=== PATIENT | male | born 1945 | race Caucasian/White ===

== ENCOUNTER 2016-06-14 07:06 | Observation (INO) | payer MEDICARE, OTHER ==
[~2016-06-14] VITALS: Ht 182.9 cm; Wt 101.7 kg
--- NOTE | ~2016-06-14 | ER ---
PATIENT'S NAME: ISRAEL DU [facility] AGE: 71 Y [address] ROOM: [facility] [place], [place] [address] LOCATION: GPCU ADMIT DATE: 06/14/2016 ER/Outpatient Report DISCHARGE DATE: FAMILY PHYSICIAN: ALMAS TOLENTINO MD ATTENDING PHYSICIAN: ALMAS TOELNTINO CHIEF COMPLAINT: Dizziness and low blood pressure. HISTORY OF PRESENT ILLNESS: The patient was at [facility] earlier this morning when they noticed that his blood pressure is low and reported to be 58 systolic over something in the 30s. The patient did feel little bit dizzy at that time. He otherwise states he has no problems or issues. He was admitted to [facility] on the 03 of June for colostomy and urostomy creation. He had some issues with blood pressure after that and his blood pressure is running in the 90s to 100s normally after that. He was discharged on yesterday. He has no other significant complaints. He did take his usual blood pressure medications. He is supposed to be on an antibiotic as well. He denies any chest pain, headache, fevers, chills, abdominal pain, shortness of breath, vision changes, or any other concerning signs or symptoms. PAST MEDICAL HISTORY: Documented on the record and reviewed by me. SOCIAL HISTORY: Documented on the record and reviewed by me. MEDICATIONS: Documented on the record and reviewed by me. ALLERGIES: DOCUMENTED ON THE RECORD AND REVIEWED BY ME. REVIEW OF SYSTEMS: All systems were reviewed and negative except as noted in the HPI. PHYSICAL EXAMINATION: VITAL SIGNS: Vital signs on arrival are blood pressure 95/52, pulse 62, respiratory rate is 18, temperature 95.9, and SpO2 is 95% on room air. GENERAL: Age-appropriate male, in no obvious pain or distress, lying comfortably on exam table. NEURO: The patient is awake and alert. GCS is 15. Speech is clear. No facial asymmetry on exam. No cranial nerve deficits appreciated. The patient does have slight right-sided nystagmus. It was fatigable. Did not reproduce PATIENT'S NAME: ISRAEL DU [facility] AGE: 71 Y [address] ROOM: [address] [place], [place] [address] LOCATION: GPCU ADMIT DATE: 06/14/2016 ER/Outpatient Report DISCHARGE DATE: FAMILY PHYSICIAN: ALMAS TOLENTINO MD ATTENDING PHYSICIAN: ALMAS TOLENTINO any symptoms. He has no pronator drift. He has no problems with past pointing. He does have some issues with rapid alternating movements of the hands with dysdiadochokinesia. This is symmetric. The lower extremities have no focal weakness at all. He is able to do kvcw-[id number]-[id number] testing appropriately. No asymmetry noted. HEENT: Normocephalic, atraumatic. The eyes are PERRL. The oropharynx is clear, dry, pink with no exudates or erythema. NECK: Supple. Trachea is midline. CHEST: Heart is regular rate and rhythm with no appreciated murmurs. LUNGS: Clear to auscultation bilateral. No rhonchi, wheezes, or rales. ABDOMEN: Soft, nontender except for some very mild tenderness around the surgical site. There is no surrounding erythema, induration, or drainage. The colostomy has a yellow brown stool in it with some gas. The urostomy has a bloody urine-like substance. BACK: Nontender. EXTREMITIES: Warm and well perfused with diffuse edema at 2+. The extremities are slightly cool, but otherwise well-perfused. SKIN: Intact except as noted above with the surgical sites. LABS AND X-RAYS: Procalcitonin is 2.54. Sodium 136, potassium 3.8, chloride 100, CO2 is 23, BUN is 49, creatinine is 10.3, and GFR is 5. LFTs within range. CRP is 12.3. Hemoglobin is 10.4, WBC is 10.2, and platelets of 256. INR is 1.1. Lactate is 1.7. EKG initially with some artifact showing very nonspecific ST-segment changes in leads I and II. No significant dysrhythmia or ST-segment changes otherwise noted with an unlikely PVC. Repeat EKG with no ST-segment changes. No other abnormalities appreciated with normal intervals and axis other than slightly prolonged QT interval. No other comparisons immediately available. Head CT is normal per Radiology. Three-way abdomen shows diffuse bowel gas pattern with no obvious abnormalities, no free air per my read. IMPRESSION: 1. Transient hypotension. 2. Nonspecific bowel gas pattern. 3. Slight hypothermia. 4. Well-healing abdominal issues. 5. Dialysis dependent, chronic renal failure. 6. Elevated procalcitonin. 7. Elevated CRP. EMERGENCY DEPARTMENT COURSE: The patient was evaluated. Based on his med list and vital signs with a history of dialysis, his presentation is very complex. The patient was initially normotensive, however, while lying did have an episode of hypotension down to 60/36. He was given a total of 1 L of fluid approximately PATIENT'S NAME: ISRAEL DU [facility] AGE: 71 Y [address] ROOM: [place] [address] LOCATION: GPCU ADMIT DATE: 06/14/2016 ER/Outpatient Report DISCHARGE DATE: FAMILY PHYSICIAN: ALMAS TOLENTINO MD ATTENDING PHYSICIAN: ALMAS TOLENTINO over 20 minutes. His blood pressures improved markedly. When he had his very low blood pressure initially, he did develop a headache at that time. All of his symptoms resolved with improvement in his blood pressure. He did describe some dizziness associated with the low blood pressure in addition to some heaviness in the extremities. No focal deficits appreciated on exam, I do not think he is consistent with a stroke and I do not think he would be a candidate for tPA in any case given his recent significant surgery. Also, I was concerned about sepsis as he appears to be cool with some low blood pressures in addition to elevated inflammatory markers. There is no obvious source of infection at this time. I have discussed the case with Dr. Tolentino, primary care physician, and we will admit him for dialysis and observation in the setting of transient hypotension, it appears to be resolved. I believe that his presentation is mostly related to hypovolemia; however given his current presentation of recent surgery and elevated inflammatory markers, I am hesitant to make that the only diagnosis. I do not think that he has a septic abdomen, I do not see any infiltrates on his chest x-ray, and his head CT is unremarkable. I think it would be unlikely for him to have a UTI at this time. I did not start any empiric antibiotics at this time. The patient did have his labetalol this morning, which may be contributing to his lower blood pressures; however, given the report from his that his blood pressures remained low after surgery, this appears to be somewhat normal for him except for the extremely low pressures. I did review some labs that the had available from [facility] and it was noted that his CRP was down trending from 18 to approximately 13 yesterday on dismissal. Today, he is less than 13. This overall trend is encouraging and makes me think that his inflammatory markers are related to his surgery and recovery. Recommend close monitoring while in dialysis. All questions were answered. The patient was admitted without further issues. MD NICOLAS MEDRANO/oz /[id number] d: 06/14/160 t: 06/16/16 0823, OUTPATIENT REPORT
--- NOTE | ~2016-06-14 | HP ---
PATIENT'S NAME: JOSE ENRIQUE DU [facility] AGE: 71 Y [address] ROOM: [address] [address] LOCATION: GPCU ADMIT DATE: 06/14/2016 History & Physical DISCHARGE DATE: 06/15/2016 FAMILY PHYSICIAN: Almas Tolentino MD ATTENDING PHYSICIAN: Almas Tolentino DATE OF SERVICE: CHIEF COMPLAINT: Low blood pressure. HISTORY OF PRESENT ILLNESS: Jose Enrique is a 71-year-old white male, who was just at the [facility] and had surgery for a colovesical fistula. He comes in with a couple of ostomies, and had low blood pressure the day before he is going to go in for dialysis. He does suffer chronic renal failure. He has had a history of prostate cancer. Because he had low blood pressure, because he was due for dialysis today, he was admitted to the hospital for observation post dialysis. When I see him in the evening of admission, he has gone through dialysis, his pressure now is 120 systolic and he feels well. He has no sign of an abscess or fever along his belly wall. His austin are intact. His two ostomies are working well. We will watch him overnight, and if the dialysis folks and the family feel he is stable, he will go home tomorrow. PAST MEDICAL HISTORY AND MEDICATIONS: See nurse's notes, which has been reviewed. ALLERGIES: NONE. PREVIOUS OPERATIONS: Recent surgery at [facility] for colovesical fistula noted, otherwise, see nurse's database. He does have a remote history of prostate cancer as mentioned. SOCIAL HISTORY: Does not smoke. FAMILY HISTORY: Noncontributory. REVIEW OF SYSTEMS: Positive for obesity, prostate cancer, colovesical fistula. Otherwise per PATIENT'S NAME: JOSE ENRIQUE [facility] AGE: 71 Y [address] ROOM: [address] [address] LOCATION: GPCU ADMIT DATE: 06/14/2016 History & Physical DISCHARGE DATE: 06/15/2016 FAMILY PHYSICIAN: Almas Tolentino MD ATTENDING PHYSICIAN: Almas Tolentino nurse's database. PHYSICAL EXAMINATION: GENERAL: Pleasant obese male who is oriented to person, place, time, lying in bed. VITAL SIGNS: His pulse is 80, his blood pressure is 120/80, his temp is normal, his O2 sats are normal on room air. HEENT: Benign. He wears glasses. Pupils react to light. TMs not visualized. Posterior pharynx is clear. Mucous membranes are moist. NECK: Unremarkable. LUNGS: Clear to auscultation bilaterally. HEART: Shows no murmur, gallop, or rub. ABDOMEN: Obese. Ostomy present on left lower quadrant. Right lower quadrant, three austin present. Midline intact. Wound is normal. PELVIC AND RECTAL: Not done. EXTREMITIES: No edema to speak of. NEUROLOGIC: Grossly intact without lateralizing signs. Mental status normal for age. No sign of depression or anxiety. ASSESSMENT: 1. Hypotension (?) orthostatic. 2. Chronic renal dialysis patient. 3. Remote history of prostate cancer. 4. Status post repair of colovesical fistula in [facility] last week. PLAN: If he is stable, home in the morning as mentioned. ALMAS TOLENTINO MD MANAGER PROGRAM/oz /[id number] D: T: 033 HISTORY & PHYSICAL
--- NOTE | ~2016-06-14 | DS ---
PATIENT'S NAME: ISRAEL DU [facility] AGE: 71 Y [address] [place] [facility] [place] [address] LOCATION: GPCU ADMIT DATE: 06/14/2016 Discharge Summary DISCHARGE DATE: 06/15/2016 FAMILY PHYSICIAN: Steven Tolentino MD ATTENDING PHYSICIAN: Steven Tolentino FINAL DIAGNOSES: 1. Hypotension, orthostatic, resolved. 2. Chronic renal dialysis patient. 3. History of recent repair of colovesical fistula at the [facility] last week, stable. 4. Remote history of prostate cancer. 5. Hypertension, essential. 6. Exogenous obesity. HOSPITAL COURSE: The patient was admitted for the above. Please see history and physical. He was admitted, sent to dialysis and observed has normal blood pressure. No orthostatic drop. He is dismissed on the med list shown. He have activities as tolerated. Diet as tolerated. Follow up with renal dialysis folks and see me in the office in a couple of weeks or earlier if he has fever, chills, or low blood pressure. He and his understand. MD MARC NELSON/michaell /[id number] d: 06/15/16 1809 t: 06/20/16 1036, DISCHARGE SUMMARY
--- NOTE | ~2016-06-14 | CON ---
PATIENT'S NAME: ISRAEL DU [facility] AGE: 71 Y [address] ROOM: [id number] [place], [place] [address] LOCATION: GPCU ADMIT DATE: 06/14/2016 Consultation DISCHARGE DATE: 06/15/2016 FAMILY PHYSICIAN: Steven Tolentino MD ATTENDING PHYSICIAN: Steven Tolentino DATE OF CONSULTATION: 06/14/2016 This is a [facility] nephrology consultation. REASON FOR CONSULTATION: End-stage renal disease, on hemodialysis therapy. HISTORY OF PRESENT ILLNESS: This is a 71-year-old male patient who is well known to Dr. Castelan and Nephrology, who presents to outpatient hemodialysis today at [facility] and was noted to have hypotension. Blood pressures were reportedly in the 50s over 30s. The patient reported some dizziness at that time. He reportedly has been at [facility] over the last few days due to colostomy and urostomy creation. He has had some trouble with his blood pressures since that admission at [facility]. He reports that he was discharged yesterday and has been feeling fatigued. He did note his blood pressures were in the 90s to 100 systolically. He continues to take his medications as prescribed. 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 He was treated with plasma exchange, Solu-Medrol, and Cytoxan. Unfortunately, his creatinine continued to worsen and his kidneys failed. He has been on hemodialysis since. He dialyzes at [facility] on Tuesday, Tuesday, and Tuesday. Therefore, due to his history of end-stage renal disease, requiring hemodialysis, Nephrology has been consulted to manage his dialysis care. PAST MEDICAL HISTORY: As listed above including, 1. End-stage renal disease. 2. Anti-glomerular basement membrane antibody disease. 3. Essential sleep apnea. 4. Edema. 5. Hypertension. 6. Coronary artery disease. 7. Restrictive lung disease. 8. Obstructive sleep apnea. 9. Obesity. 10. Brachiocephalic AV fistula placement. 11. History of prostate cancer. 12. Osteoarthritis. 13. GERD. 14. Accelerated hypertension. PAST SURGICAL HISTORY: As listed above including brachiocephalic AV fistula placement. SOCIAL HISTORY: The patient does live at home in [place] with his . He is retired. Denies any drug use, alcohol use, or illicit drug use. FAMILY HISTORY: Reviewed and is noncontributory. There is no history of kidney disease or dialysis. His mother of cancer. His father had emphysema and had an IN. His sister currently has colon cancer. PATIENT'S NAME: ISRAEL DU [facility] AGE: 71 Y [address] ROOM: [place] [address] LOCATION: GPCU ADMIT DATE: 06/14/2016 Consultation DISCHARGE DATE: 06/15/2016 FAMILY PHYSICIAN: Steven Tolentino MD ATTENDING PHYSICIAN: Steven Tolentino CURRENT MEDICATIONS: Include, 1. Aspirin 81 mg daily. 2. Colace 100 mg twice a day. 3. Cozaar 50 mg daily. 4. Flagyl 500 mg p.o. 3 times a day. 5. Lipitor 20 mg daily at bedtime. 6. Norvasc 5 mg daily at bedtime. 7. Trelstar 11.25 mg IM q.90 days. 8. PhosLo 667 mg p.o. b.i.d. at 0800 hours and 1200 hours and 1334 mg p.o. q.p.m. at 1800 with supper. 9. Trandate 200 mg p.o. b.i.d. ALLERGIES: NONE TO MEDICATIONS. REVIEW OF SYSTEMS: GENERAL: Fatigue. Denies fever, chills, or night sweats. HEENT: Eyes: No double vision or blurred vision. Corrective lenses are worn. Nose: No epistaxis reported. Mouth: No gingival bleeding. Throat: No sore throat, hoarseness, or cough. RESPIRATORY: Denies wheezing or hemoptysis. CARDIOVASCULAR: Denies any chest pain or palpitations. GASTROINTESTINAL: Denies any nausea, vomiting, or diarrhea. Denies hematemesis or hematochezia. GENITOURINARY: Denies any frequency or urgency. MUSCULOSKELETAL: Denies any new arthralgias or myalgias. Does have a history of osteoarthritis. NEUROLOGICAL: Denies any numbness and tingling in the upper or lower extremities. Denies any current balance or gait disturbances. PSYCHIATRIC: Denies history of depression or anxiety. IMMUNOLOGICAL: Denies any bruising or easy bleeding. PHYSICAL EXAMINATION: VITAL SIGNS: Blood pressure is 117/54, pulse is 73, respirations 16, temperature is 98.5, and saturations 97% on room air. GENERAL: On exam, this is a very pleasant, alert, oriented to person, place, and time white male who appears his approximate stated age and is in no acute distress. HEENT: His head is normocephalic and atraumatic. Eyes: Pupils equal, round, and reactive to light and accommodation. EOMs are intact. Corrective lenses are worn. Nose is midline. Mouth: No gingival bleeding. Throat is without lymphadenopathy, carotid bruits, or JVD. NECK: Soft and supple. CARDIOVASCULAR: Regular rate and rhythm with no appreciable murmurs, rubs, or thrills. LUNGS: Clear to auscultation, anterior and posteriorly. The patient is on room air. ABDOMEN: Soft, nontender, and nondistended. Bowel sounds are positive. EXTREMITIES: Show no signs of peripheral edema, clubbing, or cyanosis. NEUROLOGICAL: Cranial nerves 2-12 grossly intact. PATIENT'S NAME: ISRAEL DU [facility] AGE: 71 Y [address] ROOM: [address] [address] LOCATION: GPCU ADMIT DATE: 06/14/2016 Consultation DISCHARGE DATE: 06/15/2016 FAMILY PHYSICIAN: Steven Tolentino MD ATTENDING PHYSICIAN: Steven Tolentino LABORATORY DATA: WBC 10.2, hemoglobin 10.4, hematocrit 34.2, and platelets 256. Glucose is 101, BUN is 49, creatinine 10.3, sodium 136, potassium 3.8, chloride is 100, CO2 was 23, and calcium is 8.2. Albumin 2.7. AST is 21, ALT is 12, and alkaline phosphatase is 96. INR is 1.1. CRP is 12.3. Procalcitonin 2.54. ASSESSMENT AND PLAN: 1. End-stage renal disease, on hemodialysis therapy. We will obtain the patient's outpatient clinical record and provide hemodialysis accordingly. At this time, due to the patient's hypotension, we will place him at a minimum and remove as little fluid as possible. Currently, the patient's systolic blood pressures are 120s. We will monitor this closely and use albumin as warranted. 2. Hypotension of hemodialysis. Again, we will use albumin as warranted. Should the patient have persistent hypotension, we will recommend the patient start on midodrine pre-run and mid run as an outpatient. We will dose him accordingly while he is hospitalized. The patient has received IV fluid resuscitation for his blood pressures at this time. 4. Hyperphosphatemia. The patient is to continue his PhosLo with food. 5. Hypertension. Currently hypotensive. Labetalol is held prior to dialysis. We may need to titrate this as an outpatient. 6. Weight loss. The patient has reportedly lost over 40 pounds in attempt to be placed on the transplant list at [facility]. Really likely need to back off on his antihypertensives. 7. Hyperlipidemia. Continue statin. This patient has been seen and assessed by Dr. Lauren. His care is being conducted in consultation with Dr. Lauren as well as me. We will plan further recommendations as they are forthcoming. MY METZ DNP, [employer] COMPOUNDER FOR [facility] SHANIKA LAUREN MD ENS/modl /[id number] d: 06/15/161814 t: 06/19/16 1645, CONSULTATION REPORT
[~2016-06-14 07:06] MED LIST: AFRIN) (GENASAL15 ML INH; ASPIR 8181 MG PO; ASPIRIN (CHILDR81 MG PO; ATORVASTATIN CA20 MG PO; AZITHROMYCIN250 MG PO; BUMETANIDE2 MG PO; BUMEX1 MG PO; COLACE100 MG PO; DELTASONE20 MG PO; DULERA 100 MCG/51 EA INH; FOSAMAX70 MG PO; LABETALOL HCL200 MG PO; LASIX20 M1; LEVAQUIN 250 M250 MG PO; LOPRESSOR25 MG; MEGACE40 MG PO; MIRALAX17 GM PO; MOBIC7.5 MG; NITROSTAT0.4 MG SL; NORCO 5-325 MG1 TAB PO; NORVASC2.5 MG PO; NORVASC5 MG PO; OCEAN NASAL) (A44 ML INH; PLAVIX75 MG PO; PROTONIX40 MG PO; PROVENTIL HFA6.7 GM INH; SENOKOT S (S1 TABLET PO; TRELSTAR11.25 MG/2 IM
[2016-06-14 07:54] LABS: INR - (THERAPEUTIC) 1.1 (0.9-1.1); PROTIME 11.9 SECONDS (9.6-11.1); PTT 34 SECONDS (25-32)
[2016-06-14 08:01] LABS: BASOPHIL # 0.1 K/uL (0.0-0.2); BASOPHIL % 0.6 %; EOSINOPHIL # 0.6 K/uL (0.0-0.5); EOSINOPHIL % 5.4 %; HEMATOCRIT 34.2 % (37.0-53.0); HEMOGLOBIN 10.4 g/dL (11.0-16.0); IMMATURE GRANULOCYTE # 0.5 K/uL (0.0-0.3); IMMATURE GRANULOCYTE % 4.9 %; LYMPHOCYTE # 1.4 K/uL (0.8-4.0); LYMPHOCYTE % 13.3 %; MCH 27.7 pg (27.0-34.0); MCHC 30.4 gm/dL (32.0-36.5); MONOCYTE # 0.9 K/uL (0.0-1.0); MONOCYTE % 8.4 %; MPV 9.2 fl (9.4-12.4); NEUTROPHIL # (ANC) 6.9 K/uL (1.4-9.0); NEUTROPHIL % 67.4 %; NRBC % 0 /100WBC (0-0.00); PLATELET COUNT 256 K/uL (150-450); RBC 3.76 M/uL (3.50-5.50); RDW-CV 18.6 % (11.9-14.6); WBC 10.2 K/uL (4.0-11.0)
[2016-06-14 08:02] LABS: ALBUMIN 2.7 gm/dL (3.5-5.0); ANION GAP 16.8 (10.0-19.0); CALCIUM 8.2 mg/dL (8.5-10.5); POTASSIUM 3.8 mMol/L (3.7-5.1); TOTAL BILIRUBIN 0.5 mg/dL (0.0-1.5); TOTAL PROTEIN 6.2 g/dL (6.0-8.4)
[2016-06-14 08:05] LABS: CREATININE 10.3 mg/dL (0.6-1.3)
--- NOTE | 2016-06-14 10:01 | NUR ---
Pt is 71 y/o male admit for hypotension for . Pt alert and oriented x3. States he went to [facility] this for hemodialysis and felt lightheaded after sitting down in the chair. Had very low BP with systolic numbers in the 60-70's. Pt came to ED via private car. 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 No allergies. Pt in dialysis currently.
[2016-06-14] MEDS ORDERED: PHOSLO667 MG PO ×2 (15:56→15:57)
[2016-06-14] MEDS ORDERED: TAMIFLU30 MG PO (15:58)
[2016-06-14] MEDS ORDERED: NORVASC5 MG PO (15:58)
[2016-06-14] MEDS ORDERED: FLAGYL500 MG PO (15:59)
[2016-06-14] MEDS ORDERED: COZAAR50 MG PO (15:59)
[2016-06-14] MEDS ORDERED: LEVAQUIN500 MG PO (16:00)
[2016-06-14] MEDS ORDERED: TYLENOL EXTRA500 MG PO (16:00)
[2016-06-14] MEDS ORDERED: COLACE100 MG PO (16:00)
--- NOTE | 2016-06-15 04:43 | NUR ---
Significant Event: A/O, SBP 120-130s, HR 60-70s, RA, afebrile, fistula in R) upper arm with strong bruit and thrill, austin to abdominal incision intact, urostomy has scant amount bloody urine, patient emptied colostomy x3, reporting normal stools for him, steady on feet, no pain, orthostatics Follow up: continue to monitor, home today?
--- NOTE | 2016-06-15 12:25 | NUR ---
I did fax dc orders to Patience with [facility].
== END 2016-06-15 10:40 | disposition disaster alternative care site (69) ==
LOC: GMED 07:06 → GPCU 08:54
PROVIDERS: Emergency Medicine; ADMIT Family Medicine
DX: I95.1 Orthostatic hypotension (principal); I12.0 Hypertensive chronic kidney disease with stage 5 chronic kidney disease or end stage renal disease; N18.6 End stage renal disease; Z99.2 Dependence on renal dialysis; E66.09 Other obesity due to excess calories; E78.5 Hyperlipidemia, unspecified; I25.10 Atherosclerotic heart disease of native coronary artery without angina pectoris; G47.33 Obstructive sleep apnea (adult) (pediatric); E83.39 Other disorders of phosphorus metabolism; M19.90 Unspecified osteoarthritis, unspecified site; K21.9 Gastro-esophageal reflux disease without esophagitis; Z79.82 Long term (current) use of aspirin; Z79.899 Other long term (current) drug therapy; Z85.46 Personal history of malignant neoplasm of prostate
CPT/HCPCS: G0378; G8979; G8980; G8987; G8988; G8989; J7030

== ENCOUNTER → 2016-10-05 | Outpatient (CLI) | payer MEDICARE, OTHER ==
[~2016-10-05] MED LIST changes: +COZAAR50 MG PO; +FLAGYL500 MG PO; +LEVAQUIN500 MG PO; +PHOSLO667 MG PO; +TAMIFLU30 MG PO; +TYLENOL EXTRA500 MG PO
== END | disposition disaster alternative care site (69) ==
LOC: GRAD 11:57
PROC: BT1 Imaging, Urinary System, Fluoroscopy (ICD-10-PCS; principal; 2016-10-05)
DX: N32.1 Vesicointestinal fistula (principal)